=== PATIENT | male | born 1960 | race Caucasian/White ===

== ENCOUNTER 2022-04-23 18:34 | Inpatient (IN) | payer OTHER ==
[~2022-04-23] VITALS: Ht 167.6 cm; Wt 113.4 kg
[2022-04-23 18:45] VITALS: BP_SYST 127
[2022-04-23] MEDS ORDERED: NITROGLYCERIN 1 INCH (GM) OINT. TP ONE (19:30)
[2022-04-23] MEDS ORDERED: dilTIAZem HCL IVP 5 MG/ML VIAL IVP ONE (19:30)
[2022-04-23] MEDS ORDERED: ASPIRIN 81 MG TAB.CHEW PO ONE (19:30)
[2022-04-23 19:58] LABS: BASOPHILS % (AUTO) 0.6 % (0.0-2.0); EOSINOPHILS # (AUTO) 0.2 K/uL (0.0-0.4); EOSINOPHILS % (AUTO) 3.4 % (0.0-4.0); HEMATOCRIT 46.3 % (36-54); HEMOGLOBIN 15.9 g/dL (14.0-18.0); LYMPHOCYTES # (AUTO) 1.9 K/uL (1.0-5.5); LYMPHOCYTES % (AUTO) 25.6 % (20.5-51.5); MEAN CORPUSCULAR HEMOGLOBIN 34 pg (27-31); MEAN CORPUSCULAR HGB CONC 34 % (32-36); MEAN CORPUSCULAR VOLUME 100 fL (79.0-98.0); MONOCYTES # (AUTO) 0.6 K/uL (0.0-1.0); MONOCYTES % (AUTO) 8.9 % (1.7-9.3); NEUTROPHILS # (AUTO) 4.4 K/uL (1.8-7.7); NEUTROPHILS % (AUTO) 61.5 % (40.0-70.0); PLATELET COUNT (AUTO) 132 K/uL (130-430); RED BLOOD CELL COUNT(AUTO) 4.62 MIL/uL (4.2-6.2); RED CELL DISTRIBUTION WIDTH 13.2 % (9.0-15.0); WHITE BLOOD COUNT (AUTO) 7.2 K/uL (4.8-10.8)
[2022-04-23] MEDS ORDERED: NS 500 ML IV ONE (20:00)
[2022-04-23 20:05] LABS: ANION GAP 8 (5-15); CALCIUM 9.1 mg/dL (8.4-11.0); CHLORIDE 100 mmol/L (98-107); CREATININE 1.12 mg/dL (0.55-1.30); GLUCOSE 123 mg/dL (70-99); POTASSIUM 3.8 mmol/L (3.5-5.1); SODIUM SERUM 136 mmol/L (136-145); UREA NITROGEN, BLOOD 18 mg/dL (8-21)
[2022-04-23 20:13] LABS: GFR AFRICAN AMERICAN 86 mL/min (>90)
[2022-04-23 20:20] LABS: ALANINE AMINOTRANSFERASE 27 U/L (12-78); ALBUMIN 3.1 g/dL (3.4-4.8); ASPARTATE AMINOTRANSFERASE 29 U/L (10-37); TOTAL BILIRUBIN 0.5 mg/dL (0.0-1.0)
[2022-04-23] MEDS ORDERED: FURO-150 PO (21:23)
[2022-04-23] MEDS ORDERED: APIX5TAB4 PO (21:23)
[2022-04-23] MEDS ORDERED: CLOP75TA32 PO (21:23)
[2022-04-23] MEDS ORDERED: AMIO200T66 PO (21:28)
[2022-04-23] MEDS ORDERED: METO-544 (21:28)
[2022-04-23] MEDS ORDERED: SACU1TAB PO (21:28)
[2022-04-23] MEDS ORDERED: METF-518 PO (21:28)
[2022-04-23] MEDS ORDERED: POTA8TAB66 PO (21:28)
[2022-04-23] MEDS ORDERED: INSULIN REGULAR, HUMAN 100 UNITS/ML, 10 ML VIAL (humuLIN R) SUBCUT PRN (21:30)
[2022-04-23] MEDS: NACL 0.9% 1,000 ML IV SCH (22:37)
[2022-04-24] VITALS (20 sets, daily range): BP systolic 76–150
[2022-04-24] MEDS ORDERED: LORazepam 2 MG/ML VIAL IVP PRN (04:00)
[2022-04-24] MEDS ORDERED: HYDROcodone/ACETAMIN 5-325 MG TAB (NORCO/ VICODIN) PO PRN (04:00)
[2022-04-24] MEDS ORDERED: NALOXONE HCL 0.4 MG/ML AMP (NARCAN) IVP PRN ×2 (04:00)
[2022-04-24] MEDS ORDERED: HYDROcodone/ACETAMIN 10-325 MG TAB PO PRN (04:00)
[2022-04-24] MEDS ORDERED: ONDANSETRON HCL 4 MG/2 ML VIAL IVP PRN (04:00)
[2022-04-24] MEDS ORDERED: ACETAMINOPHEN 325 MG TABLET PO PRN (04:00)
[2022-04-24] MEDS: NORMAL SALINE 5 ML DISP.SYRIN IVF SCH ×3 (05:59→21:52)
[2022-04-24] MEDS ORDERED: NORMAL SALINE 5 ML DISP.SYRIN IVF SCH (06:00)
[2022-04-24 07:18] LABS: BASOPHILS % (AUTO) 0.5 % (0.0-2.0); EOSINOPHILS # (AUTO) 0.2 K/uL (0.0-0.4); EOSINOPHILS % (AUTO) 4.1 % (0.0-4.0); HEMATOCRIT 40.4 % (36-54); HEMOGLOBIN 13.8 g/dL (14.0-18.0); LYMPHOCYTES # (AUTO) 2.4 K/uL (1.0-5.5); LYMPHOCYTES % (AUTO) 39.9 % (20.5-51.5); MEAN CORPUSCULAR HEMOGLOBIN 34 pg (27-31); MEAN CORPUSCULAR HGB CONC 34 % (32-36); MEAN CORPUSCULAR VOLUME 100 fL (79.0-98.0); MONOCYTES # (AUTO) 0.6 K/uL (0.0-1.0); MONOCYTES % (AUTO) 10.9 % (1.7-9.3); NEUTROPHILS # (AUTO) 2.6 K/uL (1.8-7.7); NEUTROPHILS % (AUTO) 44.6 % (40.0-70.0); PLATELET COUNT (AUTO) 113 K/uL (130-430); RED BLOOD CELL COUNT(AUTO) 4.02 MIL/uL (4.2-6.2); RED CELL DISTRIBUTION WIDTH 13.2 % (9.0-15.0); WHITE BLOOD COUNT (AUTO) 5.9 K/uL (4.8-10.8)
[2022-04-24] MEDS: NACL 0.9% 1,000 ML IV SCH ×13 (07:30→18:28)
[2022-04-24 07:51] LABS: ALBUMIN 2.7 g/dL (3.4-4.8); CALCIUM 8.7 mg/dL (8.4-11.0); CREATININE 0.98 mg/dL (0.55-1.30); POTASSIUM 3.6 mmol/L (3.5-5.1); THYROID STIMULATING HORMONE 2.03 uIu/mL (0.36-3.74); TOTAL BILIRUBIN 0.5 mg/dL (0.0-1.0)
[2022-04-24] MEDS ORDERED: metFORMIN HCL 500 MG TABLET PO ONE (08:00)
[2022-04-24] MEDS: POTASSIUM CHLORIDE 8 MEQ TABLET.SA PO SCH (08:18)
[2022-04-24] MEDS: CLOPIDOGREL BISULFATE 75 MG TABLET PO SCH (08:19)
[2022-04-24] MEDS: APIXABAN 2.5 MG TABLET PO SCH ×2 (08:22→21:49)
[2022-04-24] MEDS: METOPROLOL SUCCINATE 50 MG TAB.SR.24H (TOPROL XL) PO SCH (08:23)
[2022-04-24] MEDS: FUROSEMIDE 20 MG TABLET PO SCH (08:25)
[2022-04-24] MEDS: AMIODARONE HCL 200 MG TABLET PO SCH (08:25)
[2022-04-24] MEDS: SACUBITRIL/VALSARTAN 24 MG-26 MG 1 TABLET PO SCH (08:34)
[2022-04-24] MEDS: metFORMIN HCL 500 MG TABLET PO SCH (17:46)
[2022-04-25] VITALS: BP_SYST 111
[2022-04-25 07:10] VITALS: BP_SYST 109
[2022-04-25] MEDS: metFORMIN HCL 500 MG TABLET PO SCH ×2 (07:23→17:29)
[2022-04-25] MEDS: NACL 0.9% 1,000 ML IV SCH ×2 (07:23→15:00)
[2022-04-25] MEDS: NORMAL SALINE 5 ML DISP.SYRIN IVF SCH ×2 (07:23→15:20)
[2022-04-25 07:58] LABS: BASOPHILS % (AUTO) 0.4 % (0.0-2.0); EOSINOPHILS # (AUTO) 0.2 K/uL (0.0-0.4); EOSINOPHILS % (AUTO) 5.4 % (0.0-4.0); HEMATOCRIT 41.5 % (36-54); HEMOGLOBIN 14.1 g/dL (14.0-18.0); LYMPHOCYTES # (AUTO) 1.7 K/uL (1.0-5.5); LYMPHOCYTES % (AUTO) 37.6 % (20.5-51.5); MEAN CORPUSCULAR HEMOGLOBIN 34 pg (27-31); MEAN CORPUSCULAR HGB CONC 34 % (32-36); MEAN CORPUSCULAR VOLUME 100 fL (79.0-98.0); MONOCYTES # (AUTO) 0.4 K/uL (0.0-1.0); MONOCYTES % (AUTO) 10.1 % (1.7-9.3); NEUTROPHILS % (AUTO) 46.5 % (40.0-70.0); PLATELET COUNT (AUTO) 94 K/uL (130-430); RED BLOOD CELL COUNT(AUTO) 4.14 MIL/uL (4.2-6.2); RED CELL DISTRIBUTION WIDTH 12.9 % (9.0-15.0); WHITE BLOOD COUNT (AUTO) 4.4 K/uL (4.8-10.8)
[2022-04-25] MEDS: APIXABAN 2.5 MG TABLET PO SCH (09:00)
[2022-04-25 09:07] LABS: CALCIUM 8.5 mg/dL (8.4-11.0); CREATININE 0.84 mg/dL (0.55-1.30); PHOSPHORUS 3.9 mg/dL (2.7-4.5); POTASSIUM 3.6 mmol/L (3.5-5.1)
[2022-04-25] MEDS: FUROSEMIDE 20 MG TABLET PO SCH (09:35)
[2022-04-25] MEDS: METOPROLOL SUCCINATE 50 MG TAB.SR.24H (TOPROL XL) PO SCH (09:36)
[2022-04-25] MEDS: SACUBITRIL/VALSARTAN 24 MG-26 MG 1 TABLET PO SCH (09:36)
[2022-04-25] MEDS: CLOPIDOGREL BISULFATE 75 MG TABLET PO SCH (09:36)
[2022-04-25] MEDS: POTASSIUM CHLORIDE 8 MEQ TABLET.SA PO SCH (09:37)
[2022-04-25] MEDS: AMIODARONE HCL 200 MG TABLET PO SCH (09:37)
[2022-04-25 12:10] VITALS: BP_SYST 117
[2022-04-25 14:55] VITALS: BP_SYST 117
[2022-04-25 16:10] VITALS: BP_SYST 110
== END 2022-04-25 18:50 | disposition home or self-care (01) | DRG 309 ==
LOC: SED 18:34 → STU 21:28 → SIC 04-24 01:49 → STU 04-24 20:21
PROVIDERS: ADMIT Preventive Medicine Preventive Medicine/Occupational Environmental Medicine; ATTEND Preventive Medicine Preventive Medicine/Occupational Environmental Medicine
DX: I48.91 Unspecified atrial fibrillation (principal); R65.10 Systemic inflammatory response syndrome (SIRS) of non-infectious origin without acute organ dysfunction; R07.89 Other chest pain; E11.22 Type 2 diabetes mellitus with diabetic chronic kidney disease; E11.65 Type 2 diabetes mellitus with hyperglycemia; E88.09 Other disorders of plasma-protein metabolism, not elsewhere classified; I12.9 Hypertensive chronic kidney disease with stage 1 through stage 4 chronic kidney disease, or unspecified chronic kidney disease; I25.10 Atherosclerotic heart disease of native coronary artery without angina pectoris; Z20.822 Contact with and (suspected) exposure to COVID-19; J44.9 Chronic obstructive pulmonary disease, unspecified; N18.9 Chronic kidney disease, unspecified; I69.320 Aphasia following cerebral infarction; Z79.899 Other long term (current) drug therapy; Z95.1 Presence of aortocoronary bypass graft
CPT/HCPCS: 36415; 71045; 80048; 80053; 80061; 82962; 83735; 83880; 84100; 84443; 84484; 85025; 87081; 93005; 93306; 96360; 99285; G0378; J1815